=== PATIENT | female | born 1975 | race Caucasian/White ===

== ENCOUNTER 2016-10-18 15:27 | Inpatient (IN) | payer MEDICAID ==
[~2016-10-18] VITALS: Ht 160 cm; Wt 91.4 kg
[2016-10-18 16:00] VITALS: Ht 160 cm; Wt 91.4 kg
[2016-10-18 16:01] VITALS: BP 151/101; PULSE 94
[2016-10-18] MEDS ORDERED: ASPI81TA3 PO (16:05)
[2016-10-18] MEDS ORDERED: PREN-19 PO (16:05)
[2016-10-18 16:38] LABS: ADD SCAN DIFF NO
[2016-10-18 16:41] LABS: BASOPHIL # 0.1 10^3/ul (0.0-0.1); BASOPHILS % 0.4 % (0.0-2.0); EOSINOPHILS # 0.1 10^3/ul (0.0-0.5); EOSINOPHILS % 1.1 % (0.0-7.0); HEMATOCRIT 36.4 % (37.0-47.0); HEMOGLOBIN 12.5 g/dl (12.0-16.0); LYMPHOCYTES # 2.4 10^3/ul (0.8-2.9); LYMPHOCYTES % 21.6 % (15.0-51.0); MEAN CORPUSCULAR HEMOGLOBIN 31.9 pg (29.0-33.0); MEAN CORPUSCULAR HGB CONC 34.3 g/dl (32.0-37.0); MEAN CORPUSCULAR VOLUME 92.9 fl (82.0-101.0); MEAN PLATELET VOLUME 12.2 fl (7.4-10.4); MONOCYTE # 0.8 10^3/ul (0.3-0.9); MONOCYTES % 6.6 % (0.0-11.0); NEUTROPHIL # 7.9 10^3/ul (1.6-7.5); NEUTROPHILS % 69.8 % (39.0-77.0); PLATELET COUNT 159 10^3/UL (140-415); RED BLOOD COUNT 3.92 10^6/ul (4.20-5.40); RED CELL DISTRIBUTION WIDTH 13.4 % (11.5-14.5); WHITE BLOOD COUNT 11.3 10^3/ul (4.8-10.8)
--- NOTE | 2016-10-18 17:02 | RADRPT ---
PROCEDURE: US OB. CLINICAL INDICATION: Low PORSHA TECHNIQUE: Transabdominal views of the pelvis are available for review. COMPARISON: None. FINDINGS: There is a single intrauterine gestation in a breech position. The heart rate is present at 154 bpm. The placenta is anterior. There is no evidence of placenta previa or a placental abruption. The maximum vertical pocket of amniotic fluid is 7.6 cm. RPTAT: AA IMPRESSION: Normal amniotic fluid volume with a maximum vertical pocket of 7.6 cm. Physician Shira Date Time Electronically viewed and signed by Physician Shira on 10/18/2016 17:02 /
[2016-10-18 17:08] LABS: ALBUMIN 3.9 g/dl (3.3-4.9); ALBUMIN/GLOBULIN RATIO 1.39; BILIRUBIN,INDIRECT 0.2 mg/dl (0-1.1); BILIRUBIN,TOTAL 0.2 mg/dl (0.2-1.3); CALCIUM 8.8 mg/dl (8.4-10.2); CREATININE 0.56 mg/dl (0.44-1.00); POTASSIUM 3.9 mmol/L (3.5-5.1); TOTAL PROTEIN 6.7 g/dl (6.1-8.1); URIC ACID 3.1 mg/dl (3.1-7.9)
[2016-10-18 17:34] LABS: ADD UMIC YES; URINE BILIRUBIN (Dip) NEGATIVE (NEGATIVE); URINE BLOOD (Dip) TRACE (NEGATIVE); URINE COLOR LT. YELLOW (YELLOW); URINE GLUCOSE (Dip) NEGATIVE (NEGATIVE); URINE KETONES (Dip) NEGATIVE (NEGATIVE); URINE LEUKOCYTE ESTERASE (Dip) 2+ (NEGATIVE); URINE NITRITE (Dip) NEGATIVE (NEGATIVE); URINE TOTAL PROTEIN (Dip) TRACE (NEGATIVE); URINE UROBILINOGEN (Dip) 0.2 E.U./dL (0.1-1.0)
[2016-10-18 17:40] LABS: BACTERIA,URINE MANY
--- NOTE | 2016-10-18 20:33 | HP ---
DATE OF ADMISSION: 10/18/2016 HISTORY OF PRESENT ILLNESS: A 41-year-old female 2, para 1, estimated date of delivery 01/31/2017, 25 weeks' gestation, is admitted to increasing blood pressure. Patient with a history of chronic hypertension; however, the patient has not been on any medication recently. PAST MEDICAL HISTORY: Chronic hypertension. ALLERGIES: PENICILLIN. FAMILY HISTORY: Noncontributory. PHYSICAL EXAMINATION: VITAL SIGNS: The patient is afebrile. Blood pressure systolic 140s to 150s, diastolics 90s and 100s. HEAD, NECK, AND CHEST: Within normal limits. ABDOMEN: Soft, nontender, and gravid. EXTREMITIES: Within normal liomits. NEUROLOGIC: Within normal limits. IMPRESSION: at 25 weeks with chronic hypertension, rule out superimposed preeclampsia. PLAN: Admit. -induced hypertension panel, 24-hour urine collection. Perinatology consultation. Dictated By: EDMOND MARTE/MING Conf#: [id number] DID#: [id number] MTDChristopher
[2016-10-18] MEDS: LABETALOL 100 MG TAB PO SCH (20:46)
[2016-10-19] MEDS: LABETALOL 100 MG TAB PO SCH ×2 (09:01→21:39)
--- NOTE | 2016-10-19 15:22 | PERINOTE ---
Date/Time of Note Date/Time of Note DATE: 10/19/16 TIME: 15:12 Assessment/Recommendations Other Assessments IUP 25 weeks 1 day Chronic hypertension, possibly with superimposed preeclampsia, certainly with severe-range BPs since admission although no other laboratory abnormalities seen. Recommendations: Would continue bedrest (with SCDs) in the hospital at this time. If BPs are controlled with medication and there is no concern for superimposed preeclampsia (for example, normal urine protein and stable BPs), then could consider discharge home. Otherwise would keep this patient hospitalized with presumptive superimposed preeclampsia with severe features (BP). Plan then would be for delivery by 34 weeks GA, earlier if the fetus or mother become unstable. In either case, I would follow this patient with ultrasound for growth every 3 weeks, daily NST and weekly PORSHA. Would add UA Doppler determination weekly if there is a concern for inadequate growth. Would also perform evaluation for gestational diabetes, preferably at least a week after any steroid administration. OB Subjective Free Text/Dictaton Patient admitted with hypertension Patient with a past history of hypertension for 6 years. Previously was taking hydrochlorthiazide and benazapril, but on no meds during . BP at 15 weeks was 140/96. BP on 10/18 in the office was 151/101, patient was sent to hospital. blood work was unremarkable, 24 hour urine for protein is pending. Patient reports prior care with [facility] , last US about 2 weeks ago. She is taking aspirin 81mg daily for prophylaxis for preeclampsia HD# 2 IUP @ 25W1D Complaints/Overnight events None Current Medications Current Medications Labetalol HCl (Normodyne) 200 mg BID PO Last administered on 10/19/16t 09:01; Admin Dose 200 MG; Start 10/18/16 at 21:00 Past Medical History Medical History: hypertension Surgical History: no surgical history Para: 1 () : 2 LMP (Females 10-50): Family History Significant Family History: hypertension OB Admission Exam Physical Exam Vitals: Vital Signs Date Time Temp Pulse Resp B/P Pulse Ox O2 Delivery O2 Flow Rate FiO2 10/18/16 16:01 98.8 94 151/101 Room Air Max BP since admission: 173/122 BP at time of consultation 136/101 Heart: Rhythm Normal Lungs: Clear Abdomen: WNL Extremities: Normal Reflexes: Normal Last 72 hours Lab Results CBC & BMP 10/18/16 16:28 Liver Function Test 10/18/16 16:28 Alanine Aminotransferase (ALT/SGPT) 29 Albumin 3.9 Alkaline Phosphatase 54 Aspartate Amino Transf (AST/SGOT) 20 Direct Bilirubin 0.00 Total Protein 6.7 Copies To: CC: EDMOND LUA MD, MARIE H MD Oct 19, 2016 15:22
[2016-10-19] MEDS: ASPIRIN (EC) 81 MG TAB PO SCH (16:32)
--- NOTE | 2016-10-19 18:24 | QN ---
Documentation Comment No complaint Afebrile BP still elevated. Plt, AST and ALT normal. Patient is on labetalol to control her BP. Await 24 hour urine collection. EDMOND LUA MD Oct 19, 2016 18:24
[2016-10-19 19:41] LABS: SCRET 0.56 mg/dl (0.44-1.00)
[2016-10-20] MEDS: LABETALOL 100 MG TAB PO SCH ×2 (05:59→13:53)
[2016-10-20] MEDS: ASPIRIN (EC) 81 MG TAB PO SCH (08:52)
--- NOTE | 2016-10-20 20:28 | DS ---
DATE OF ADMISSION: 10/18/2016 DATE OF DISCHARGE: 10/20/2016 ADMITTING DIAGNOSIS: at 25 weeks with chronic hypertension, rule out superimposed preecla mpsia. HISTORY: A 41-year-old female, 2, para 1, at 25 weeks' gestation was admitted due to increa sing blood pressure. The patient with history of chronic hypertension and was noted to have increas ing blood pressure. The patient was admitted on 10/18/2016. The patient had workup for preeclampsi a with -induced hypertension panel, 24-hour urine collection. Perinatology consultation wa s obtained. Recommendation of perinatologist was to keep the patient on antihypertensive medication to control her blood pressure with labetalol and if the workup with labs and 24-hour urine collecti on were normal to have the patient discharged. The patient was started on labetalol. The patient's blood pressure improved. The patient has not had any symptoms during hospitalization. Results of -induced hypertension panel and 24-hour urine collection were normal. The patient is disch arged on 10/20/2016. CONDITION ON DISCHARGE: Stable. DISCHARGE INSTRUCTIONS: DIET: Low-salt diet. ACTIVITY: As tolerated. MEDICATION: Continue with: 1. vitamins. 2. Low-dose aspirin. 3. Labetalol 200 mg p.o. 3 times daily. FOLLOWUP: In the clinic in 5 days. FINAL DIAGNOSES: 1. , not delivered. 2. Chronic hypertension. Dictated By: EDMOND MARTE/NTS Conf#: [id number] DID#: [id number]
== END 2016-10-20 18:53 | disposition home or self-care (01) | DRG 781 ==
LOC: OBT 15:27 → OBG 15:29 → OBT 17:50 → OBG 17:50
PROVIDERS: ADMIT Obstetrics & Gynecology; ATTEND Obstetrics & Gynecology
DX: O16.2 Unspecified maternal hypertension, second trimester (principal); O09.522 Supervision of elderly multigravida, second trimester; Z3A.25 25 weeks gestation of pregnancy
CPT/HCPCS: 36415; 76815; 80053; 81001; 82575; 84156; 84560; 85025; G0463

== ENCOUNTER 2016-11-13 17:50 | Inpatient (IN) | payer MEDICAID ==
[~2016-11-13] VITALS: Ht 160 cm; Wt 97.0 kg
[~2016-11-13 17:50] MED LIST: ASPI81TA3 PO; PREN-19 PO
[2016-11-13 19:18] VITALS: BP 144/101; PULSE 92; RESP 18; Ht 160 cm; Wt 97.0 kg
[2016-11-13 19:48] LABS: ADD UMIC YES; UR ASCORBIC ACID 40 mg/dL (NEGATIVE); UR BACTERIA FEW /HPF (NONE SEEN); UR BILIRUBIN (Dip) NEGATIVE (NEGATIVE); UR BLOOD (Dip) NEGATIVE (NEGATIVE); UR CLARITY SLIGHTLY CLOUDY (CLEAR); UR COLOR YELLOW (YELLOW); UR GLUCOSE (Dip) NEGATIVE (NEGATIVE); UR KETONES (Dip) TRACE mg/dL (NEGATIVE); UR LEUKOCYTE ESTERASE (Dip) 2+ Leu/ul (NEGATIVE); UR MUCUS MODERATE /HPF (NONE SEEN); UR NITRITE (Dip) NEGATIVE (NEGATIVE); UR RBC 4 /HPF (0-5); UR SPECIFIC GRAVITY (Dip) 1.031 (1.003-1.030); UR SQUAMOUS EPITHELIAL CELL FEW /HPF (FEW); UR TOTAL PROTEIN (Dip) 1+ mg/dl (NEGATIVE); UR UROBILINOGEN (Dip) NEGATIVE (NEGATIVE)
[2016-11-13 19:48] LABS: ADD SCAN DIFF NO
[2016-11-13 19:54] LABS: BASOPHIL # 0.1 10^3/ul (0.0-0.1); BASOPHILS % 0.6 % (0.0-2.0); EOSINOPHILS # 0.1 10^3/ul (0.0-0.5); EOSINOPHILS % 1.5 % (0.0-7.0); HEMATOCRIT 34.9 % (37.0-47.0); LYMPHOCYTES # 2.4 10^3/ul (0.8-2.9); LYMPHOCYTES % 24.9 % (15.0-51.0); MEAN CORPUSCULAR HGB CONC 34.4 g/dl (32.0-37.0); MEAN CORPUSCULAR VOLUME 93.1 fl (82.0-101.0); MEAN PLATELET VOLUME 12.5 fl (7.4-10.4); MONOCYTE # 0.6 10^3/ul (0.3-0.9); MONOCYTES % 6.1 % (0.0-11.0); NEUTROPHIL # 6.4 10^3/ul (1.6-7.5); NEUTROPHILS % 66.5 % (39.0-77.0); PLATELET COUNT 123 10^3/UL (140-415); RED BLOOD COUNT 3.75 10^6/ul (4.20-5.40); RED CELL DISTRIBUTION WIDTH 13.7 % (11.5-14.5); WHITE BLOOD COUNT 9.6 10^3/ul (4.8-10.8)
[2016-11-13] MEDS ORDERED: BETAMET NA PHOS/AC(6 MG/ML) 5ML INJ IM ONE (20:00)
[2016-11-13] MEDS: LABETALOL HCL 20MG INJ IV PRN ×3 (20:02→22:35)
[2016-11-13] MEDS: LACTATED RINGER'S 1,000 ML IV SCH ×2 (20:02→23:58)
[2016-11-13 20:08] LABS: INR 0.97; PARTIAL THROMBOPLASTIN TIME 25.2 Sec (25.0-35.0); PROTIME 12.9 Sec (12.2-14.2)
[2016-11-13] MEDS ORDERED: LABE200T25 PO (20:08)
[2016-11-13 20:10] LABS: ALBUMIN 3.8 g/dl (3.3-4.9); ALBUMIN/GLOBULIN RATIO 1.58; BILIRUBIN,INDIRECT 0.2 mg/dl (0-1.1); BILIRUBIN,TOTAL 0.2 mg/dl (0.2-1.3); CALCIUM 9.1 mg/dl (8.4-10.2); CREATININE 0.71 mg/dl (0.44-1.00); POTASSIUM 3.9 mmol/L (3.5-5.1); TOTAL PROTEIN 6.2 g/dl (6.1-8.1); URIC ACID 4.6 mg/dl (3.1-7.9)
--- NOTE | 2016-11-13 20:37 | TRIAGE ---
OB Triage Datetime Report Generated by CPN: 11/13/2016 20:36 Datetime: 11/13/2016 20:11 Vaginal Exam Membrane Status: Intact Datetime: 11/13/2016 18:52 Comments: ULTRASOUND AT THE BEDSDIE Datetime: 11/13/2016 18:30 Stage of : OB Triage Assessment Type: Triage Maternal Assessment Level of Consciousness: Fully Conscious DTR's/Clonus: DTRs 2+; No Clonus Headache: Denies Blurred Vision: No Respiratory Effort: Unlabored; Regular Rhythm; Equal Expansion Breath Sounds, Left: Clear and Equal Breath Sounds, Right: Clear and Equal Nausea/Vomiting: Denies RUQ Epigastric Pain: Denies Lower Extremities Edema: Bilateral Lower Extremities Degree: 2+ Upper Extremities Edema: None Degree: None Facial Edema: 1+ Temperature Route: Axillary Fall Risk Assessment History of Falling: (0) No Secondary Diagnosis: (0) No Ambulatory Aid: (0) Bedrest/Nurse Assist IV Therapy: (0) No Gait: (0) Normal/Bedrest/Immobile Mental Status: (0) Oriented to Own Ability Fall Score: 0 Fall Risk Score Definition: No Risk: No action required Datetime: 11/13/2016 18:22 Labor Evaluation Frequency: 0 Monitor Mode: External Duration (sec)2399: 0 Resting Tone [place]: Relaxed Contraction Comments: PT DENIES UC'S AT THIS TIME Heart Rate FHR Baseline Rate: 145 Monitor Mode: External US Variability: Moderate 6-25 bpm Accelerations: 15X15 Decelerations: None Category: Category I Comments: NST REACTIVE FOR GESTATIONAL AGE Datetime: 10/20/2016 18:43 Time of Arrival: 11/13/2016 17:50 EGA: 28.5 Arrived By: Ambulatory Arrived From: Dr. Forman Movement: Present Contractions: Denies/Absent Rupture of Membranes: Denies Vaginal Bleeding: None Vaginal Discharge: Denies Recent Sexual Intercouse: Denies Additional Patient Complaints: PT IS ASYMPTOMATIC, PT DENIES UC,S HEADACHE, ABDOMINAL PAIN , AND B LURRED VISION Time Provider Notified: 11/13/2016 18:35 Provider Notified: DR. LUA Initial Plan: UA, CBC, CMP , BPP, Datetime: 10/20/2016 09:51 Labor Evaluation Frequency: 0 Monitor Mode: External Duration (sec)2399: 0 Pattern: Normal: <= 5 Contractions in 10 Minutes Resting Tone [place]: Relaxed Contraction Comments: ABDOMEN SOFT TO PALPATION. DENIES FEELING ANY UC'S Heart Rate FHR Baseline Rate: 140 Monitor Mode: External US FHR Baseline Changes: No Baseline Change Variability: Moderate 6-25 bpm Accelerations: 10X10 Decelerations: Variable Category: Category I Datetime: 10/20/2016 07:45 Assessment Type: Ongoing Assessment Maternal Assessment Level of Consciousness: Fully Conscious DTR's/Clonus: DTRs 2+; No Clonus Headache: Denies Blurred Vision: No Respiratory Effort: Unlabored; Regular Rhythm; Equal Expansion Nausea/Vomiting: Denies RUQ Epigastric Pain: Denies Lower Extremities Edema: None Upper Extremities Edema: None Facial Edema: None Fall Risk Assessment History of Falling: (0) No Secondary Diagnosis: (0) No Ambulatory Aid: (0) Bedrest/Nurse Assist IV Therapy: (0) No Gait: (0) Normal/Bedrest/Immobile Mental Status: (0) Oriented to Own Ability Fall Score: 0 Fall Risk Score Definition: No Risk: No action required Datetime: 10/20/2016 07:35 Pain Assessment Pain Scale: 0 Pain Presence: None/Denies Pain Type: N/A Datetime: 10/20/2016 06:00 Maternal Assessment Level of Consciousness: Fully Conscious Datetime: 10/20/2016 04:42 Pain Assessment Pain Scale: 0 Datetime: 10/19/2016 20:00 Labor Evaluation Frequency: 0 Monitor Mode: External Heart Rate FHR Baseline Rate: 150 Monitor Mode: External US FHR Baseline Changes: No Baseline Change Variability: Minimal - Undetectable to <=5 bpm Accelerations: 10X10 Decelerations: None Category: Category I Comments: AGA 25 WKS Datetime: 10/19/2016 19:42 Assessment Type: Ongoing Assessment Maternal Assessment Level of Consciousness: Fully Conscious DTR's/Clonus: DTRs 2+; No Clonus Headache: Denies Blurred Vision: No Respiratory Effort: Unlabored; Regular Rhythm; Equal Expansion Nausea/Vomiting: Denies RUQ Epigastric Pain: Denies Lower Extremities Edema: None Upper Extremities Edema: None Facial Edema: None Temperature Route: Oral Fall Risk Assessment History of Falling: (0) No Secondary Diagnosis: (0) No Ambulatory Aid: (0) Bedrest/Nurse Assist IV Therapy: (0) No Gait: (0) Normal/Bedrest/Immobile Mental Status: (0) Oriented to Own Ability Fall Score: 0 Fall Risk Score Definition: No Risk: No action required Pain Assessment Pain Scale: 0 Datetime: 10/19/2016 17:02 Stage of : Antepartum Maternal Assessment Level of Consciousness: Fully Conscious Headache: Denies Nausea/Vomiting: Denies RUQ Epigastric Pain: Denies Labor Evaluation Frequency: 0hr Monitor Mode: External Heart Rate FHR Baseline Rate: 145 Monitor Mode: External US Comments: + fht's 140-150's ega is 25.1 approp. for ega Pain Assessment Pain Scale: 0 Pain Presence: None/Denies Vaginal Bleeding: None Datetime: 10/19/2016 16:00 Stage of : Antepartum Maternal Assessment Level of Consciousness: Fully Conscious Headache: Denies Nausea/Vomiting: Denies RUQ Epigastric Pain: Denies Labor Evaluation Frequency: 0hr Monitor Mode: External Pain Assessment Pain Scale: 0 Pain Presence: None/Denies Vaginal Bleeding: None Datetime: 10/19/2016 15:54 Maternal Assessment Level of Consciousness: Fully Conscious Headache: Denies Blurred Vision: No Respiratory Effort: Unlabored Nausea/Vomiting: Denies RUQ Epigastric Pain: Denies Pain Presence: None/Denies Datetime: 10/19/2016 15:00 Stage of : Antepartum Maternal Assessment Level of Consciousness: Fully Conscious Headache: Denies Nausea/Vomiting: Denies RUQ Epigastric Pain: Denies Labor Evaluation Frequency: 0hr Monitor Mode: External Pain Assessment Pain Scale: 0 Pain Presence: None/Denies Vaginal Bleeding: None Datetime: 10/19/2016 13:00 Stage of : Antepartum Maternal Assessment Level of Consciousness: Fully Conscious Headache: Denies Nausea/Vomiting: Denies RUQ Epigastric Pain: Denies Labor Evaluation Frequency: 0hr Monitor Mode: External Pain Assessment Pain Scale: 0 Pain Presence: None/Denies Vaginal Bleeding: None Datetime: 10/19/2016 12:00 Stage of : Antepartum Maternal Assessment Level of Consciousness: Fully Conscious Headache: Denies Nausea/Vomiting: Denies RUQ Epigastric Pain: Denies Labor Evaluation Frequency: 0hr Monitor Mode: External Pain Assessment Pain Scale: 0 Pain Presence: None/Denies Vaginal Bleeding: None Datetime: 10/19/2016 11:43 Maternal Assessment Level of Consciousness: Fully Conscious Headache: Denies Blurred Vision: No Nausea/Vomiting: Denies Pain Presence: None/Denies Datetime: 10/19/2016 11:00 Stage of : Antepartum Maternal Assessment Level of Consciousness: Fully Conscious Headache: Denies Nausea/Vomiting: Denies RUQ Epigastric Pain: Denies Labor Evaluation Frequency: 0/hr Monitor Mode: External Pain Assessment Pain Scale: 0 Pain Presence: None/Denies Vaginal Bleeding: None Datetime: 10/19/2016 10:00 Stage of : Antepartum Maternal Assessment Level of Consciousness: Fully Conscious Headache: Denies Nausea/Vomiting: Denies RUQ Epigastric Pain: Denies Resting Tone [place]: Relaxed Pain Assessment Pain Scale: 0 Pain Presence: None/Denies Vaginal Bleeding: None Datetime: 10/19/2016 09:00 Stage of : Antepartum Maternal Assessment Level of Consciousness: Fully Conscious Headache: Denies Nausea/Vomiting: Denies RUQ Epigastric Pain: Denies Resting Tone [place]: Relaxed Pain Assessment Pain Scale: 0 Pain Presence: None/Denies Vaginal Bleeding: None Datetime: 10/19/2016 08:53 Pain Presence: None/Denies Datetime: 10/19/2016 08:00 Stage of : Antepartum Maternal Assessment Level of Consciousness: Fully Conscious Headache: Denies Nausea/Vomiting: Denies RUQ Epigastric Pain: Denies Resting Tone [place]: Relaxed Contraction Comments: pt. denies Comments: ega 25.1 pt. acknowledges movement Pain Assessment Pain Scale: 0 Pain Presence: None/Denies Vaginal Bleeding: None Datetime: 10/19/2016 07:46 Assessment Type: Ongoing Assessment Maternal Assessment Level of Consciousness: Fully Conscious DTR's/Clonus: DTRs 2+; No Clonus Headache: Denies Blurred Vision: No Respiratory Effort: Unlabored; Regular Rhythm; Equal Expansion Nausea/Vomiting: Denies RUQ Epigastric Pain: Denies Lower Extremities Edema: None Upper Extremities Edema: None Facial Edema: None Fall Risk Assessment History of Falling: (0) No Secondary Diagnosis: (0) No Ambulatory Aid: (0) Bedrest/Nurse Assist IV Therapy: (0) No Gait: (0) Normal/Bedrest/Immobile Mental Status: (0) Oriented to Own Ability Fall Score: 0 Fall Risk Score Definition: No Risk: No action required Datetime: 10/19/2016 07:44 Maternal Assessment Level of Consciousness: Fully Conscious DTR's/Clonus: DTRs 2+ Headache: Denies Blurred Vision: No Respiratory Effort: Unlabored Breath Sounds, Left: Clear and Equal Breath Sounds, Right: Clear and Equal Nausea/Vomiting: Denies RUQ Epigastric Pain: Denies Datetime: 10/19/2016 07:40 Pain Presence: None/Denies Datetime: 10/18/2016 23:55 Temperature Route: Oral Pain Assessment Pain Scale: 0 Datetime: 10/18/2016 22:00 Labor Evaluation Frequency: 0 Monitor Mode: External Heart Rate FHR Baseline Rate: 145 Monitor Mode: External US FHR Baseline Changes: No Baseline Change Variability: Moderate 6-25 bpm (Annotations: TO MINIMAL. AGA 25 WKS) Accelerations: 10X10 Decelerations: None Category: Category I Datetime: 10/18/2016 19:30 Assessment Type: Ongoing Assessment Maternal Assessment Level of Consciousness: Fully Conscious DTR's/Clonus: DTRs 2+; No Clonus Headache: Denies Blurred Vision: No Respiratory Effort: Unlabored; Regular Rhythm; Equal Expansion Nausea/Vomiting: Denies RUQ Epigastric Pain: Denies Facial Edema: None Temperature Route: Oral Fall Risk Assessment History of Falling: (0) No Secondary Diagnosis: (0) No Ambulatory Aid: (0) Bedrest/Nurse Assist IV Therapy: (0) No Gait: (0) Normal/Bedrest/Immobile Mental Status: (0) Oriented to Own Ability Fall Score: 0 Fall Risk Score Definition: No Risk: No action required Pain Assessment Pain Scale: 0 Datetime: 10/18/2016 19:10 Stage of : Antepartum Datetime: 10/18/2016 16:57 Labor Evaluation Frequency: 0 Monitor Mode: External Duration (sec)2399: 0 Pattern: Normal: <= 5 Contractions in 10 Minutes Contraction Comments: ABDOMEN SOFT TO PALPATION Heart Rate FHR Baseline Rate: 150 Monitor Mode: External US FHR Baseline Changes: No Baseline Change Variability: Minimal - Undetectable to <=5 bpm Accelerations: 10X10 Decelerations: None Category: Category II Datetime: 10/18/2016 15:57 Time of Arrival: 10/18/2016 17:50 EGA: 25.0 Arrived By: Ambulatory Arrived From: Dr. Office Datetime: 10/18/2016 15:56 Assessment Type: Triage Maternal Assessment Level of Consciousness: Fully Conscious DTR's/Clonus: DTRs 2+; No Clonus Headache: Denies Blurred Vision: No Respiratory Effort: Unlabored; Regular Rhythm; Equal Expansion Breath Sounds, Left: Clear and Equal Breath Sounds, Right: Clear and Equal Nausea/Vomiting: Denies RUQ Epigastric Pain: Denies Lower Extremities Edema: Bilateral Lower Extremities Degree: 1+ Upper Extremities Edema: None Degree: None Facial Edema: None Fall Risk Assessment History of Falling: (0) No Secondary Diagnosis: (0) No Ambulatory Aid: (0) Bedrest/Nurse Assist IV Therapy: (0) No Gait: (0) Normal/Bedrest/Immobile Mental Status: (0) Oriented to Own Ability Fall Score: 0 Fall Risk Score Definition: No Risk: No action required Datetime: 10/18/2016 15:54 Time of Arrival: 10/18/2016 15:45 Arrived By: Ambulatory Chief Complaint: SENT FROM [facility] FOR ELVEATED B/P'S Movement: Present Contractions: Denies/Absent Rupture of Membranes: Denies Vaginal Bleeding: None Vaginal Discharge: Denies Recent Sexual Intercouse: Denies Abdominal Trauma: Not Applicable Patient Complaints: None Initial Plan: UA, LABS, PIH PANEL, NST
--- NOTE | 2016-11-13 20:42 | RADRPT ---
PROCEDURE: US OB. CLINICAL INDICATION: Chronic hypertension TECHNIQUE: Pelvic ultrasound performed for biophysical profile. COMPARISON: 10/18/2016 FINDINGS: Single intrauterine gestation present with heart rate at 21 146 beats per minute. Presentation is c ephalic. Placenta is posterior fundal and grade 1. Biophysical profile score is 8/8 (breathing=2, movement=2, tone =2, fluid volume=2). Amniotic fluid volume is within normal limits, with PORSHA = 13. 9 cm. RPTAT:HJJR IMPRESSION: Biophysical profile score 8/8. Physician Jed Date Time Electronically viewed and signed by Physician Jed on 11/13/2016 20:42 JR/
[2016-11-13] MEDS ORDERED: LABETALOL 100 MG TAB PO SCH (21:00)
[2016-11-13] MEDS ORDERED: MAGNESIUM SULFATE 4 GM/100 ML 100 ML ONE (23:15)
[2016-11-13] MEDS ORDERED: MAGNESIUM SULFATE 4 GM/100 ML 100 ML IV SCH (23:30)
[2016-11-13] MEDS ORDERED: CA GLUCONATE (GM) 10% 10ML INJ IV PRN (23:30)
[2016-11-14] MEDS: MAGNESIUM SULFATE 20 GM/500 ML 500 ML IV SCH ×3 (00:03→20:00)
[2016-11-14] MEDS: LABETALOL 100 MG TAB PO SCH ×3 (05:05→21:05)
[2016-11-14 06:14] LABS: ADD SCAN DIFF NO
[2016-11-14 06:21] LABS: ABNORMAL IP MESSAGE 1; BASOPHILS % 0.2 % (0.0-2.0); HEMATOCRIT 39.7 % (37.0-47.0); HEMOGLOBIN 13.1 g/dl (12.0-16.0); LYMPHOCYTES # 1.5 10^3/ul (0.8-2.9); LYMPHOCYTES % 13.6 % (15.0-51.0); MEAN CORPUSCULAR HEMOGLOBIN 31.3 pg (29.0-33.0); MEAN CORPUSCULAR VOLUME 94.7 fl (82.0-101.0); MEAN PLATELET VOLUME 13.2 fl (7.4-10.4); MONOCYTE # 0.1 10^3/ul (0.3-0.9); MONOCYTES % 0.8 % (0.0-11.0); NEUTROPHIL # 9.3 10^3/ul (1.6-7.5); NEUTROPHILS % 84.7 % (39.0-77.0); PLATELET COUNT 139 10^3/UL (140-415); RED BLOOD COUNT 4.19 10^6/ul (4.20-5.40); RED CELL DISTRIBUTION WIDTH 13.6 % (11.5-14.5)
[2016-11-14 06:51] LABS: ALBUMIN 4.1 g/dl (3.3-4.9); ALBUMIN/GLOBULIN RATIO 1.46; BILIRUBIN,INDIRECT 0.4 mg/dl (0-1.1); BILIRUBIN,TOTAL 0.4 mg/dl (0.2-1.3); CALCIUM 8.8 mg/dl (8.4-10.2); CREATININE 0.59 mg/dl (0.44-1.00); POTASSIUM 5.1 mmol/L (3.5-5.1); TOTAL PROTEIN 6.9 g/dl (6.1-8.1); URIC ACID 4.2 mg/dl (3.1-7.9)
[2016-11-14] MEDS: PRENATAL VITAMIN PO SCH (08:53)
[2016-11-14] MEDS: ASPIRIN (EC) 81 MG TAB PO SCH (08:53)
[2016-11-14] MEDS: LACTATED RINGER'S 1,000 ML IV SCH (13:25)
--- NOTE | 2016-11-14 16:30 | CONS ---
Date/Time of Note Date/Time of Note DATE: 11/14/16 TIME: 16:27 Assessment/Plan Assessment/Plan Additional Assessment/Plan I spoke at length with mom regarding complications associated with delivery at 28+ weeks. Discussed length of stay in NICU. Discussed mortality data. Discussed complications at this gestational age including but not limited to chronic lung disease requiring ventilator use as well as home oxygen therapy, higher risk of infections, necrotizing enterocolitis, intraventricular hemorrhage, retinopathy prematurity. Discussed benefits of breastmilk for prevention of some of these complications. Discussed high risk of neurodevelopmental morbidities including cerebral palsy, attention deficit disorder, autism, learning disabilities and infants born at this gestational age. Mom verbalized understanding of our discussion all questions have been asked at this point Thank you for allowing me to participate in the care of this . Should any further questions arise please do not hesitate to contact us Consultation Date/Type/Reason Admit Date/Time Nov 13, 2016 at 18:35 Date of Consultation: Nov 14, 2016 Type of Consultation: Reason for Consultation Assessment performed her consultation for Majo AndujarNapier who is a 41- year-old female admitted to [facility] at estimated gestational age of 28 and 5/7 weeks with -induced hypertension. Social History Smoking Status: Never smoker Exam/Review of Systems Vital Signs Vitals Vital Signs Date Time Temp Pulse Resp B/P Pulse Ox O2 Delivery O2 Flow Rate FiO2 11/13/16 19:18 97.8 92 18 144/101 98 Room Air Intake and Output 11/13/16 11/13/16 11/14/16 15:00 23:00 07:00 Intake Total 1875 ml Output Total 200 ml 1550 ml Balance -200 ml 325 ml Results Result Diagram: 11/14/16 0551 11/14/16 0551 Results 24 hrs Laboratory Tests Test 11/13/16 18:00 11/13/16 19:38 11/14/16 05:51 11/14/16 11:31 Urine Color YELLOW Urine Clarity SLIGHTLY CLOUDY A Urine pH 5.0 Urine Specific [place] 1.031 H Urine Ketones TRACE A Urine Nitrite NEGATIVE Urine Bilirubin NEGATIVE Urine Urobilinogen NEGATIVE Urine Leukocyte Esterase 2+ H Urine Microscopic RBC 4 Urine Microscopic WBC 17 H Urine Squamous Epithelial Cells FEW Urine Bacteria FEW A Urine Mucus MODERATE Urine Hemoglobin NEGATIVE Urine Glucose NEGATIVE Urine Total Protein 1+ H White Blood Count 9.6 11.0 H Red Blood Count 3.75 L 4.19 L Hemoglobin 12.0 13.1 Hematocrit 34.9 L 39.7 Mean Corpuscular Volume 93.1 94.7 Mean Corpuscular Hemoglobin 32.0 31.3 Mean Corpuscular Hemoglobin Concent 34.4 33.0 Red Cell Distribution Width 13.7 13.6 Platelet Count 123 #L 139 L Mean Platelet Volume 12.5 H 13.2 H Neutrophils % 66.5 84.7 H Lymphocytes % 24.9 13.6 L Monocytes % 6.1 0.8 Eosinophils % 1.5 0.0 Basophils % 0.6 0.2 Nucleated Red Blood Cells % 0.0 0.0 Neutrophils # 6.4 9.3 H Lymphocytes # 2.4 1.5 Monocytes # 0.6 0.1 L Eosinophils # 0.1 0.0 Basophils # 0.1 0.0 Nucleated Red Blood Cells # 0.0 0.0 Prothrombin Time 12.9 Prothrombin Time Ratio 1.0 INR International Normalized Ratio 0.97 Activated Partial Thromboplast Time 25.2 Fibrinogen 362.0 Sodium Level 135 138 Potassium Level 3.9 5.1 Chloride Level 106 102 Carbon Dioxide Level 23 23 Anion Gap 10 18 #H Blood Urea Nitrogen 11 10 Creatinine 0.71 0.59 Glucose Level 99 141 # Uric Acid 4.6 4.2 Calcium Level 9.1 8.8 Total Bilirubin 0.2 0.4 Direct Bilirubin 0.00 0.00 Indirect Bilirubin 0.2 0.4 Aspartate Amino Transf (AST/SGOT) 28 33 Alanine Aminotransferase (ALT/SGPT) 33 33 Alkaline Phosphatase 57 71 Total Protein 6.2 6.9 Albumin 3.8 4.1 Globulin 2.40 2.80 Albumin/Globulin Ratio 1.58 1.46 Magnesium Level 4.2 H 4.5 H Medications Medications Current Medications Lactated Ringer's (Lr) 1,000 ml @ 75 mls/hr [id number] IV Last administered on 13:25; Admin Dose 75 MLS/HR; Start 11/13/16 at 19:36 Prenat Multivit/ Demand Planning Analyst/Iron/Folic Ac ( S) 1 tab DAILY PO Last administered on 11/14/16 08:53; Admin Dose 1 TAB; Start 11/14/16 at 09:00 Labetalol HCl (Labetalol) 20 mg Q10M PRN IV ELEVATED BLOOD PRESSURE Last administered on 11/13/16 22:35; Admin Dose 20 MG; Start 11/13/16 at 20:00 Aspirin 81 mg 81 mg DAILY PO Last administered on 11/14/16 08:53; Admin Dose 81 MG; Start 11/14/16 at 09:00 Magnesium Sulfate (Magnesium Sulfate 20 Gm/500 ml) 500 ml @ 50 mls/hr Q10H IV Last administered on 11/14/16 10:42; Admin Dose 50 MLS/HR; Start 11/14/16 at 00: 00 Calcium Gluconate (Ca Gluc) 1 gm ONCE PRN IV FOR MAGNESIUM TOXICITY; Start at 23:30 Labetalol HCl (Normodyne) 300 mg Q8H PO Last administered on 11/14/16 13:52; Admin Dose 300 MG; Start 11/14/16 at 05:00 Betamethasone Acet/Betameth SodPhos (Celestone Soluspan) 12 mg ONCE ONCE IM ; Start 11/14/16 at 21:00; Stop 11/14/16 at 21:01 DERRELL DIA MD Nov 14, 2016 16:30
--- NOTE | 2016-11-14 18:46 | HP ---
Date/Time of Note Date/Time of Note DATE: 11/14/16 TIME: 18:40 OB - History Hx of Present Chief Complaint: elevated BP Estimated Due Date: Jan 31, 2017 : 2 Para: 1 Spontaneous : 0 Therapeutic : 0 Care: Good Care Ultrasounds: Normal mid trimester US Obstetrical Complications: None Medical Complications: Other (chronic hypertension) Past Family/Social History * Past Medical, Surgical, Family and Obstetric Histories reviewed from chart. OB Admission Exam Vital Signs Vital Signs Vital Signs Date Time Temp Pulse Resp B/P Pulse Ox O2 Delivery O2 Flow Rate FiO2 11/13/16 19:18 97.8 92 18 144/101 98 Room Air Physical Exam HEENT: WNL Heart: Rhythm Normal Lungs: Clear Abdomen: WNL Extremities: Normal Reflexes: Normal Last 72 hours Lab Results CBC & BMP 11/13/16 19:38 11/14/16 05:51 Liver Function Test 11/13/16 19:38 11/14/16 05:51 Alanine Aminotransferase (ALT/SGPT) 33 33 Albumin 3.8 4.1 Alkaline Phosphatase 57 71 Aspartate Amino Transf (AST/SGOT) 28 33 Direct Bilirubin 0.00 0.00 Total Protein 6.2 6.9 Magnesium Level Test 11/14/16 05:51 11/14/16 11:31 Magnesium Level 4.2 H 4.5 H OB Assessment/Plan Reason for admission: other (chrnic hypertension r/o superimposed preeclampsia) Plan: Other Other plan: Admit PIH panel 24 hour urine collection Control BP Perinatology consult Neonatology consult EDMOND LUA MD Nov 14, 2016 18:46
[2016-11-14 19:44] LABS: SCRET 0.59 mg/dl (0.44-1.00)
[2016-11-14] MEDS ORDERED: BETAMET NA PHOS/AC(6 MG/ML) 5ML INJ IM ONE (21:00)
[2016-11-15] MEDS: LACTATED RINGER'S 1,000 ML IV SCH ×5 (01:06→23:27)
[2016-11-15] MEDS: LABETALOL 100 MG TAB PO SCH ×3 (05:26→21:09)
[2016-11-15] MEDS: PRENATAL VITAMIN PO SCH (08:18)
[2016-11-15] MEDS: ASPIRIN (EC) 81 MG TAB PO SCH (08:18)
--- NOTE | 2016-11-15 12:22 | RADRPT ---
PROCEDURE: US OB biophysical profile. CLINICAL INDICATION: decreased movements, PTL TECHNIQUE: Multiple sonographic images of the pelvis were obtained. The images were reviewed on a PACS workstation. COMPARISON: 11/13/16 FINDINGS: There is a single viable intrauterine gestation. Cardiac activity is present with 142 beats per min [place]. There is a breech presentation. The placenta is posterior. There is no evidence of placental abruption. There is a normal amount of amniotic fluid with an PORSHA = 13.4 cm. Biophysical profile: movement 2/2 tone 2/2. breathing 2/2 PORSHA 2/2 Total 12/17 RPTAT: AA . IMPRESSION: Normal biophysical profile. . .Janes Dior MD, MD Date Time Electronically viewed and signed by .Janes Dior MD, MD on 11/15/2016 12:21 .S/
--- NOTE | 2016-11-15 12:54 | RADRPT ---
PROCEDURE: US OB. CLINICAL INDICATION: Size and dates , labor TECHNIQUE: Multiple sonographic images of the pelvis and gravid uterus were obtained. The images were reviewed on a PACS workstation. COMPARISON: 11/13/2016 FINDINGS: There is a single viable intrauterine gestation. Cardiac activity is present with 142 beats per edna te. There is a breech presentation. The placenta is posterior. There is no evidence of placental abruption. There is a normal amount of amniotic fluid with an PORSHA = 13.4 cm. Measurements were made in order to determine age. The results are as follows: BPD =6.9 cm HC =26.5 cm AC =24.9 cm FL =5.3 cm Estimated gestational age of approximately 28 weeks and 4 days based on ultrasound measurements. Clinical age: 29 weeks and 0 days. The estimated date of delivery is 02/03/17, based on ultrasound measurements. The EFW = 1272 g, 27%, based on LMP age. RPTAT: AA IMPRESSION: Single viable intrauterine gestation of approximately 28 weeks and 4 days based on ultrasound measu rements. .Janes Dior MD, Date Time Electronically viewed and signed by .Janes Dior MD, MD on 11/15/2016 12:54 .S/
[2016-11-15] MEDS: ACETAMINOPHEN 325 MG TAB PO PRN (18:39)
[2016-11-15] MEDS: LABETALOL HCL 20MG INJ IV PRN ×2 (19:06→20:08)
--- NOTE | 2016-11-15 20:34 | QN ---
Documentation Comment Patient had headache earlier and after she took Tylenol, her headache improved. Afebrile BP increased again Strip appropriate for GA BPP / Will control BP with increase in antihrpertensive medication. EDMOND LUA MD Nov 15, 2016 20:34
[2016-11-16] MEDS: LABETALOL 100 MG TAB PO SCH (05:08)
[2016-11-16] MEDS ORDERED: ONDANSETRON 4 MG INJ ONE (07:00)
[2016-11-16] MEDS: LABETALOL HCL 20MG INJ IV PRN (07:27)
[2016-11-16] MEDS ORDERED: hydrALAzine 20 MG INJ IV ONE ×5 (08:00→14:00)
[2016-11-16] MEDS: ACETAMINOPHEN 325 MG TAB PO PRN (08:21)
[2016-11-16] MEDS: LACTATED RINGER'S 1,000 ML IV SCH (09:27)
[2016-11-16] MEDS ORDERED: MAGNESIUM SULFATE 4 GM in SOD CHLORIDE 0.9% 100 ML IV ONE (09:30)
[2016-11-16] MEDS: PRENATAL VITAMIN PO SCH (10:04)
[2016-11-16] MEDS: ASPIRIN (EC) 81 MG TAB PO SCH (10:04)
[2016-11-16] MEDS: MAGNESIUM SULFATE 20 GM/500 ML 500 ML IV SCH ×2 (10:19→20:26)
[2016-11-16] MEDS ORDERED: OXYTOCIN 30 UNITS/LR 500 ML IV PRN ×2 (11:30→19:00)
[2016-11-16] MEDS ORDERED: CARBOPROST 250 MCG INJ IM PRN ×2 (11:30→19:00)
[2016-11-16] MEDS ORDERED: METHYLERGONOVINE 0.2 MG INJ IM PRN (11:30)
[2016-11-16] MEDS ORDERED: MISOPROSTOL 200 MCG TAB PR PRN ×2 (11:30→19:00)
[2016-11-16] MEDS ORDERED: CEFAZOLIN 2 GM/50 ML (PMX) 50 ML IVPB SCH (11:30)
[2016-11-16] MEDS ORDERED: OXYTOCIN 30 UNITS/LR 500 ML IV SCH (11:30)
[2016-11-16] MEDS ORDERED: CEFAZOLIN 2 GM/50 ML (PMX) 50 ML IVPB ONE (12:00)
[2016-11-16 12:23] LABS: ADD SCAN DIFF NO
[2016-11-16 12:32] LABS: BASOPHILS % 0.2 % (0.0-2.0); EOSINOPHILS % 0.1 % (0.0-7.0); HEMATOCRIT 36.1 % (37.0-47.0); HEMOGLOBIN 12.2 g/dl (12.0-16.0); LYMPHOCYTES # 2.6 10^3/ul (0.8-2.9); LYMPHOCYTES % 18.8 % (15.0-51.0); MEAN CORPUSCULAR HEMOGLOBIN 31.9 pg (29.0-33.0); MEAN CORPUSCULAR HGB CONC 33.8 g/dl (32.0-37.0); MEAN CORPUSCULAR VOLUME 94.5 fl (82.0-101.0); MEAN PLATELET VOLUME 12.8 fl (7.4-10.4); MONOCYTE # 0.9 10^3/ul (0.3-0.9); MONOCYTES % 6.3 % (0.0-11.0); NEUTROPHIL # 10.2 10^3/ul (1.6-7.5); PLATELET COUNT 127 10^3/UL (140-415); RED BLOOD COUNT 3.82 10^6/ul (4.20-5.40); RED CELL DISTRIBUTION WIDTH 14.1 % (11.5-14.5); WHITE BLOOD COUNT 13.9 10^3/ul (4.8-10.8)
[2016-11-16 12:54] LABS: INR 0.94; PROTIME 12.6 Sec (12.2-14.2)
[2016-11-16 12:55] LABS: PARTIAL THROMBOPLASTIN TIME 22.4 Sec (25.0-35.0)
[2016-11-16] MEDS ORDERED: morphine SULFATE/PF (10 MG/10 ML) INJ ONE (14:02)
[2016-11-16] MEDS ORDERED: FENTAnyl 50 MCG/ML VIAL ONE (14:03)
[2016-11-16] MEDS ORDERED: PHENYLephrine (100 MCG/ML) 5ML SYG ONE (14:08)
[2016-11-16] MEDS ORDERED: DEXAMETHASONE 4 MG/ML 1 ML INJ ONE (14:36)
[2016-11-16] MEDS ORDERED: HYDROmorphONE 1 MG/ML SYG IV PRN ×2 (15:30)
[2016-11-16] MEDS ORDERED: NALOXONE (0.4 MG/ML) INJ IV PRN (15:30)
[2016-11-16] MEDS ORDERED: KETOROLAC 30 MG INJ IV PRN (15:30)
[2016-11-16] MEDS ORDERED: ZOLPIDEM 5 MG TAB PO PRN (15:30)
[2016-11-16] MEDS ORDERED: DIPHENHYDRAMINE 50 MG INJ IV PRN (15:30)
[2016-11-16] MEDS ORDERED: ONDANSETRON 4 MG INJ IV PRN (15:30)
[2016-11-16 18:40] VITALS: BP 128/93; PULSE 68; RESP 18
[2016-11-16] MEDS ORDERED: LANOLIN 7 GM TUBE TOP PRN (19:00)
[2016-11-16 19:23] VITALS: BP 121/92; PULSE 71; RESP 17
[2016-11-16 20:21] VITALS: BP 131/92; PULSE 68; RESP 18
[2016-11-16] MEDS: OXYTOCIN 30 UNITS/LR 500 ML IV SCH (20:27)
[2016-11-16 21:19] VITALS: BP 134/95; PULSE 66; RESP 16
[2016-11-16] MEDS: LABETALOL 200 MG TAB PO SCH (21:24)
[2016-11-16] MEDS: SENNA/DOCUSATE NA (8.6MG/50MG) TAB PO SCH (21:24)
[2016-11-16 22:21] VITALS: BP 133/93; PULSE 69; RESP 18
[2016-11-16 23:20] VITALS: BP 120/91; PULSE 72; RESP 18
[2016-11-17] VITALS (22 sets, daily range): BP systolic 120–166; BP diastolic 68–111; PULSE 60–74; RESP 16–64
[2016-11-17] MEDS: LACTATED RINGER'S 1,000 ML IV SCH ×3 (03:53→19:00)
[2016-11-17] MEDS: MAGNESIUM SULFATE 20 GM/500 ML 500 ML IV SCH ×2 (06:30→15:46)
[2016-11-17 07:38] LABS: ADD SCAN DIFF NO
[2016-11-17 07:43] LABS: BASOPHILS % 0.1 % (0.0-2.0); HEMATOCRIT 32.3 % (37.0-47.0); HEMOGLOBIN 10.4 g/dl (12.0-16.0); LYMPHOCYTES % 12.6 % (15.0-51.0); MEAN CORPUSCULAR HGB CONC 32.2 g/dl (32.0-37.0); MEAN CORPUSCULAR VOLUME 96.1 fl (82.0-101.0); MEAN PLATELET VOLUME 12.9 fl (7.4-10.4); MONOCYTE # 1.1 10^3/ul (0.3-0.9); MONOCYTES % 6.5 % (0.0-11.0); NEUTROPHIL # 12.9 10^3/ul (1.6-7.5); NEUTROPHILS % 80.1 % (39.0-77.0); NUCLEATED RED BLOOD CELLS% 0.1 /100WBC (0.0-0.0); PLATELET COUNT 121 10^3/UL (140-415); RED BLOOD COUNT 3.36 10^6/ul (4.20-5.40); RED CELL DISTRIBUTION WIDTH 14.3 % (11.5-14.5); WHITE BLOOD COUNT 16.2 10^3/ul (4.8-10.8)
[2016-11-17] MEDS: SENNA/DOCUSATE NA (8.6MG/50MG) TAB PO SCH ×2 (08:46→21:15)
[2016-11-17] MEDS: LABETALOL 200 MG TAB PO SCH ×3 (08:47→23:31)
[2016-11-17] MEDS: IBUPROFEN 800 MG TAB PO SCH ×2 (14:00→21:15)
[2016-11-17] MEDS: OXYTOCIN 30 UNITS/LR 500 ML IV SCH (15:47)
[2016-11-17] MEDS: OXYCODONE/ACETAMINOPHEN (5/325) TAB PO PRN ×2 (18:03→23:33)
--- NOTE | 2016-11-17 22:33 | QN ---
Documentation Comment No complaint Afebrile BP was elevated earlier, now improving Abdomen soft ND POD #1 Stable D/C magnesium sulfate Continue labetalol to control BP Ambulate Advance diet. EDMOND LUA MD Nov 17, 2016 22:33
[2016-11-18] VITALS (22 sets, daily range): BP systolic 128–170; BP diastolic 85–113; PULSE 68–90; RESP 16–20
[2016-11-18] MEDS: NIFEdipine (XL) 30 MG TAB PO SCH ×3 (05:28→18:25)
[2016-11-18] MEDS: IBUPROFEN 800 MG TAB PO SCH ×3 (05:29→21:55)
[2016-11-18] MEDS: LABETALOL 200 MG TAB PO SCH ×3 (08:02→23:33)
[2016-11-18 08:22] LABS: ADD SCAN DIFF NO
[2016-11-18 08:38] LABS: BASOPHILS % 0.2 % (0.0-2.0); EOSINOPHILS # 0.1 10^3/ul (0.0-0.5); EOSINOPHILS % 0.6 % (0.0-7.0); HEMOGLOBIN 9.4 g/dl (12.0-16.0); LYMPHOCYTES # 2.6 10^3/ul (0.8-2.9); LYMPHOCYTES % 24.2 % (15.0-51.0); MEAN CORPUSCULAR HEMOGLOBIN 30.9 pg (29.0-33.0); MEAN CORPUSCULAR HGB CONC 32.4 g/dl (32.0-37.0); MEAN CORPUSCULAR VOLUME 95.4 fl (82.0-101.0); MEAN PLATELET VOLUME 12.5 fl (7.4-10.4); MONOCYTE # 0.7 10^3/ul (0.3-0.9); MONOCYTES % 6.2 % (0.0-11.0); NEUTROPHIL # 7.4 10^3/ul (1.6-7.5); NEUTROPHILS % 67.9 % (39.0-77.0); PLATELET COUNT 105 10^3/UL (140-415); RED BLOOD COUNT 3.04 10^6/ul (4.20-5.40); RED CELL DISTRIBUTION WIDTH 14.5 % (11.5-14.5); WHITE BLOOD COUNT 10.9 10^3/ul (4.8-10.8)
[2016-11-18] MEDS: LACTATED RINGER'S 1,000 ML IV SCH ×3 (09:04→18:19)
[2016-11-18] MEDS: SENNA/DOCUSATE NA (8.6MG/50MG) TAB PO SCH ×2 (09:13→21:55)
[2016-11-18] MEDS: OXYCODONE/ACETAMINOPHEN (5/325) TAB PO PRN (09:49)
[2016-11-19] VITALS (16 sets, daily range): BP systolic 104–158; BP diastolic 80–109; PULSE 70–94; RESP 18–20
[2016-11-19] MEDS: OXYCODONE/ACETAMINOPHEN (5/325) TAB PO PRN ×2 (04:04→12:02)
[2016-11-19] MEDS: IBUPROFEN 800 MG TAB PO SCH ×3 (05:32→21:52)
[2016-11-19] MEDS: NIFEdipine (XL) 30 MG TAB PO SCH (05:36)
[2016-11-19] MEDS: LACTATED RINGER'S 1,000 ML IV SCH (07:00)
--- NOTE | 2016-11-19 07:30 | PN ---
Date/Time of Note Date/Time of Note DATE: 11/19/16 TIME: 07:24 OB Subjective Subjective Subjective Late Entry Note: patient seen and examined last night POD# 2 Patient seen and examined, she is doing well, denies nausea, vomiting, shortness of breath, chest pain, headache. Lochia is appropriate. She has been ambulating without difficulty and tolerating regular diet. Pain is well controlled on current medications. OB Objective Objective Objective General: AAO X 3, comfortable, NAD, appropriate mood and affect Heart: RRR +S1, +S2, no murmurs Lungs: Clear to auscultation (B/L), no rales, rhonchi or wheezing ABD: Soft, non-tender. UFH: 2 cm below umbilicus Incision: Clear, dry, intact. No erythema, drainage or induration Flank: No CVA tenderness (B/L) LE: Mod edema. No clubbing, cyanosis, thigh or calf tenderness (B/L) OB Assessment/Plan Other plan: POD# 2 S/P delivery. - Afebrile, vital sign stable. - Routine post- care. - Cont current managemment 2) CHTN with superimposed preeclampsia: Currently on labetalol and procardia. Continue current management. F/U by RAMIRO Jay Nov 19, 2016 07:30
[2016-11-19] MEDS: SENNA/DOCUSATE NA (8.6MG/50MG) TAB PO SCH ×2 (08:13→20:59)
[2016-11-19] MEDS: LABETALOL 200 MG TAB PO SCH ×3 (08:14→23:23)
[2016-11-19] MEDS ORDERED: DIPHTH/TET/ACEL PERTUSS (ADULT) 0.5 ML VIAL IM* ONE (09:00)
--- NOTE | 2016-11-19 14:50 | QN ---
Documentation Comment No complaint Afebrile BP still elevated Will increase medication to control BP. EDMOND LUA MD Nov 19, 2016 14:50
[2016-11-19] MEDS: NIFEdipine (XL) 60 MG TAB PO SCH (16:07)
[2016-11-20] VITALS (18 sets, daily range): BP systolic 111–155; BP diastolic 83–113; PULSE 79–97; RESP 18–20
[2016-11-20] MEDS: NIFEdipine (XL) 60 MG TAB PO SCH ×3 (04:01→21:22)
[2016-11-20] MEDS: IBUPROFEN 800 MG TAB PO SCH ×3 (05:42→21:22)
[2016-11-20] MEDS: SENNA/DOCUSATE NA (8.6MG/50MG) TAB PO SCH ×2 (08:20→21:22)
[2016-11-20] MEDS: LABETALOL 200 MG TAB PO SCH ×2 (08:21→16:08)
--- NOTE | 2016-11-20 15:11 | CONS ---
Date/Time of Note Date/Time of Note DATE: 11/20/16 TIME: 15:05 Assessment/Plan Assessment/Plan Chief Complaint/Hosp Course IMP: 1.HTN-ongoing post delivery. ? component of anxiety/agitation. Had pre-existing prior to teated with ACEI/HCTZ which could be used in as well 2.Post-op s/p c section delivery 3.Anemia 4.pre-eclampsia s/p c section delivery Recc: -Continue current procardia/Labetelol that have been started with further uptitration of labetelol as necessary -Will continue hydralazine for now as well but could likely be switched back to ACEI as outpatient as necessary but will hold on this at this time as ACEI can cross into breast milk and have some hemodynamic affects/consequences upon newborns -Will f/u 2 d echo -ok for d/c when BP remains stable in reasonable range. Will discuss with Dr Lua Problems: Consultation Date/Type/Reason Admit Date/Time Nov 13, 2016 at 18:35 Date of Consultation: Nov 20, 2016 Type of Consultation: Cardiology Reason for Consultation HTN Referring Provider: EDMOND LUA MD Hx of Present Illness 41 y/o female s/p c section delivery for pre-eclampsia, HTN with h/o HTN x 5 years treated with ACEI/HCTZ. Now since delivery 11/16/16 patient with ongoing uncontrolled HTN. Patient denies CP/SOB/palpitations/BERRY/dizziness. Review of Systems: CONSTITUTIONAL: No fevers, chills. PULMONARY: No sob CARDIOVASCULAR: No chest pain/palpitations GASTROINTESTINAL: No nausea/vomiting. GENITOURINARY: No hematuria/dysuria. MUSCULOSKELETAL: No myagias/arthalgias. PSYCHIATRIC: anxiety NEUROLOGIC: No weakness Past Medical History Medical History: hypertension Past Surgical History Past Surgical Hx: other (s/p c section delivery) Family History Significant Family History: no pertinent family hx Social History Alcohol Use: none Smoking Status: Never smoker Drug Use: none Exam/Review of Systems Vital Signs Vitals Vital Signs Date Time Temp Pulse Resp B/P Pulse Ox O2 Delivery O2 Flow Rate FiO2 11/20/16 14:30 91 18 145/104 Room Air 11/20/16 12:00 98.0 11/17/16 13:00 97 21 Exam Constitutional: alert, oriented Head: normocephalic ENMT: mucosa pink and moist Neck: jvd (9 cm water), supple Respiratory: diminished breath sounds (at bases/B) Cardiovascular: regular rate and rhythm Gastrointestinal: non-tender, soft Musculoskeletal: muscle tone (normal) Extremities: edema (BIlateral pitting) Neurological: other (No focal deficits) Results Result Diagram: 11/18/16 0800 Medications Medications Current Medications Oxycodone/ Acetaminophen (Percocet (5/ 325)) 1 tab Q4H PRN PO PAIN LEVEL 4-6 Last administered on 11/19/16 12:02; Admin Dose 1 TAB; Start 11/17/16 at 14:00 Oxycodone/ Acetaminophen (Percocet (5/ 325)) 2 tab Q4H PRN PO PAIN LEVEL 7-10 Last administered on 11/19/16 04:04; Admin Dose 2 TAB; Start 11/17/16 at 14:00 Ibuprofen (Motrin) 800 mg Q8 PO Last administered on 11/20/16 13:25; Admin Dose 800 MG; Start 11/17/16 at 14:00 Simethicone (Mylicon) 160 mg Q8H PRN PO DISTENSION/GAS/BLOATING; Start 11/16/16 at 19:00 Senna/Docusate Sodium 1 tab 1 tab BID PO Last administered on 11/20/16 08:20; Admin Dose 1 TAB; Start 11/16/16 at 21:00 Oxytocin/Lactated Ringer's 500 ml @ 0 mls/hr ONCE PRN IV For Hemorrhage Management; Start 11/16/16 at 19:00 Carboprost Tromethamine (Hemabate) 250 mcg ONCE PRN IM VAGINAL BLEEDING; Start 11/16/16 at 19:00 Misoprostol (Cytotec) 1,000 mcg ONCE PRN TN VAGINAL BLEEDING; Start 11/16/16 at 19:00 Labetalol HCl (Normodyne) 400 mg Q8H PO Last administered on 11/20/16 08:21; Admin Dose 400 MG; Start 11/17/16 at 16:00 Hydralazine HCl (Apresoline) 10 mg Q6 PO Last administered on 11/20/16 12:20; Admin Dose 10 MG; Start 11/19/16 at 12:00 Nifedipine (Procardia Xl) 60 mg BID PO Last administered on 11/20/16t 04:01; Admin Dose 60 MG; Start 11/19/16 at 15:26 ASTRID POLK Nov 20, 2016 15:11
[2016-11-20] MEDS: OXYCODONE/ACETAMINOPHEN (5/325) TAB PO PRN (16:06)
--- NOTE | 2016-11-20 16:25 | RADRPT ---
Echocardiogram Report Patient Name: DAHLIA HONG Gender: Female Date: 1975 Study Date: 19-Nov-2016 Bow Maker Machine Tender: [facility] Location: [id number] Ref. Physician: BERTRAND ALLRED Quality: Adequate Procedures: Transthoracic echocardiogram with complete 2D, M-Mode, and doppler examination. Indications: Elevated blood pressure. 2D/M Mode Doppler Measurement Value Normal Ranges Measurement Value Normal Ranges LVIDd 2D 4.0 3.5 - 5.6 cm AV Peak Giacomo 1.9 m/sec LVIDs 2D 2.5 2.1 - 4.1 cm AV Peak PG 14.0 mmHg FS 2D 36.3 % LVOT Peak Giacomo 1.2 m/sec LVPWd 2D 1.4 0.6 - 1.1 cm LVOT Peak PG 6.0 mmHg IVSd 2D 1.3 0.6 - 1.1 cm MV E Peak Giacoom 0.7 m/sec IVS/LVPW 2D 1.0 MV A Peak Giacomo 1.0 m/sec AoR Diam 2D 3.3 2.0 - 3.7 cm MV E/A 0.7 LA/Ao 2D 1 0 - 1 MV Decel Time 158 msec EDV 2D 64.0 cm3 MV E/A 0.7 ESV 2D 16.6 cm3 LA Dimen 2D 4.0 2.3 - 4.0 cm Findings Left Ventricle: Normal left ventricular systolic function. Normal left ventricular cavity size. Mild concentric left ventricular hypertrophy. Ejection fraction is visually estimated at 6065 %. Abnormal Diastolic Function. Right Ventricle: Normal right ventricular size. Normal right ventricular systolic function. Left Atrium: The left atrium is normal in size. Right Atrium: The right atrium is normal in size. Mitral Valve: Mitral valve leaflets appear mildly thickened. Mild mitral annular calcification. Trace mitral regurgitation. Aortic Valve: No significant aortic stenosis or insufficiency. Aortic valve not well visualized. Tricuspid Valve: Normal appearance and function of the tricuspid valve with trace physiologic regurgitation. Pulmonic Valve: Pulmonic valve not well visualized. There is trace pulmonic regurgitation. Pericardium: Normal pericardium with no significant pericardial effusion. Aorta: Normal aortic root. IVC: Normal size and normal respiratory collapse consistent with normal right atrial pressure. Conclusions Normal left ventricular systolic function. Normal left ventricular cavity size. Mild concentric left ventricular hypertrophy. Ejection fraction is visually estimated at 60-65 %. Abnormal Diastolic Function. Mitral valve leaflets appear mildly thickened. Mild mitral annular calcification. Trace mitral regurgitation. Normal appearance and function of the tricuspid valve with trace physiologic regurgitation. Pulmonic valve not well visualized. There is trace pulmonic regurgitation. Electronically Signed By: Izaiah Rodarte 20-Nov-2016 16:24:02 -0700 Patient Name: DAHLIA HONG Study Date: 19-Nov-2016 [id number]
[2016-11-20] MEDS ORDERED: hydrOXYzine HCL 25 MG TAB PO PRN (19:30)
--- NOTE | 2016-11-20 21:38 | QN ---
Documentation Comment Cardiology consult noted and appreciated. Patient's BP was very high earlier and patient's medications were increased to control her BP. Will continue to monitor BP closely and once BP controlled will d/c home. EDMOND LUA MD Nov 20, 2016 21:38
[2016-11-21] VITALS (12 sets, daily range): BP systolic 104–141; BP diastolic 83–106; PULSE 81–97; RESP 18–20
[2016-11-21] MEDS: IBUPROFEN 800 MG TAB PO SCH ×2 (05:38→14:43)
[2016-11-21] MEDS: SENNA/DOCUSATE NA (8.6MG/50MG) TAB PO SCH (08:43)
[2016-11-21] MEDS: NIFEdipine (XL) 60 MG TAB PO SCH (08:43)
[2016-11-21] MEDS: LABETALOL 200 MG TAB PO SCH ×3 (08:43→16:15)
[2016-11-21] MEDS: OXYCODONE/ACETAMINOPHEN (5/325) TAB PO PRN ×2 (11:30→16:50)
--- NOTE | 2016-11-21 13:04 | PREOPHP ---
PREOP HISTORY AND PHYSICAL DATE OF ADMISSION: 11/13/2016 HISTORY OF PRESENT ILLNESS: A 41-year-old female, 2, para 1, estimated date of delivery 01/31/2017, was admitted due to increasing blood pressure. The patient with history of chronic hypertension and had been on labetalol, however, the patient's blood pressure was noted to be increasing to 154/106 in the clinic. PAST MEDICAL HISTORY: Chronic hypertension. ALLERGIES: PENICILLIN. FAMILY HISTORY: Hypertension. PAST SURGICAL HISTORY: Unremarkable. PHYSICAL EXAMINATION: VITAL SIGNS: Vital signs are stable. HEENT: Head within normal limits. NECK: Within normal limits. ABDOMEN: Soft, nontender, and gravid. NEUROLOGIC: Normal. HOSPITAL COURSE: The patient was admitted due to increase in blood pressure. Perinatologist consultation was obtained. The patient initially was given intravenous magnesium sulfate for seizure prophylaxis and patient was given intravenous antihypertensive. The patient's blood pressure improved and patient was placed on increased dose of labetalol. Recommendation of pernatologist was to discontinue magnesium sulfate and to monitor the patient in the hospital. On 11/15/2016, patient's blood pressure was noted to be increasing more. The patient was also given intravenous labetalol, however, the patient's blood pressure would not decrease. On 11/16/2016, patient complained of headache. The patient's systolic blood pressure was noted to have increased to the 180s. The patient was started on intravenous magnesium sulfate for seizure prophylaxis. The patient was also given intravenous hydralazine to lower her blood pressure. Despite being on intravenous magnesium sulfate and receiving intravenous hydralazine and labetalol, the patient's blood pressure still remains in the 160s. Recommendations of perinatologist is to go on and deliver the patient. The patient is for delivery by primary section. Risks, benefits, and alternatives of said procedure were explained to patient. The patient said she understood and gave full consent for the procedure. Dictated By: Trey Fuentes MD /araceli/minerva /Document#: [id number] Conf#:[id number] DID#: [id number] MTDD
--- NOTE | 2016-11-21 13:07 | CONS ---
CONSULTATION DATE OF ADMISSION: 11/13/2016 DATE OF CONSULTATION: REASON FOR CONSULTATION: patient's blood pressures have continued to be in a very severe range despite IV labetalol, hydralazine IV and hydralazine p.o., and she has been experiencing headache essentially since increase of the blood pressure last night. Given these findings, delivery is recommended as soon as possible and please consider magnesium sulfate after delivery. Continue monitoring strict ins and outs. Dictated By: Margo Lamb MD /araceli/ec /Document#: [id number]
--- NOTE | 2016-11-21 16:31 | RADRPT ---
Vent Rate: 76 bpm RR Interval: 0 msec SC Interval: 138 msec QRS Duration: 78 msec QT Interval: 364 msec QTC Interval: 409 msec P-R-T [place]: 58 - 67 - 25 degrees Normal sinus rhythm Normal ECG Electronically Signed By: Axel Cleary [id number]
[2016-11-21] MEDS ORDERED: IBUP800T25 PO (18:53)
--- NOTE | 2016-11-24 08:31 | OPR ---
DATE OF OPERATION: 11/16/2016 PREOPERATIVE DIAGNOSIS: at 29 weeks, chronic hypertension, superimposed preeclampsia. POSTOPERATIVE DIAGNOSIS: at 29 weeks, chronic hypertension, superimposed preeclampsia. OPERATION PERFORMED: Primary section through an inverted T incision. SURGEON: Trey Fuentes MD KNITTER WIRE MESH: Donna Mendiola MD ANESTHESIA: Spinal. ANESTHESIOLOGIST: Dr. Cantu OPERATIVE PROCEDURE: The patient was taken to the operating room and placed on the operating table. After successful spinal anesthesia was given, the patient was placed in the . The area was prepped and draped in the usual sterile fashion. Spinal anesthesia was and was satisfactory. Using scalpel, a Pfannenstiel incision was made about 2 fingerbreadths above the symphysis pubis. The incision was carried to the fascia. The fascia was incised and extended bilaterally with Weir scissors. Two Joycelyn's were used to separate the fascia from the muscle. The muscle was dissected down to peritoneum. The peritoneum was bluntly entered. Using a scalpel, a small transverse incision was made in the lower segment of the uterus. Upon entering the uterine cavity, Pfannenstiel was incision bilaterally. It was noted that the baby was in transverse lie position, therefore the incision was extended to an inverted T incision. The baby was delivered from cephalic presentation after internal version from transverse lie. After suctioned clear of amniotic fluid, the baby was handed off to the kids activities coach in attendance. Apgars were 8 and 9. The placenta was delivered without difficulty. The uterus was closed with number 1 Monocryl continuous lock after assuring hemostasis. Both ovaries and tubes were normal. The peritoneal cavity was irrigated with warm saline. The peritoneum was closed with 2-0 Vicryl continuous. The fascia was closed with number 1 Vicryl continuous in 2 segments. The subcutaneous tissue was reapproximated with 2-0 plain. The skin was closed with jesús. Estimated blood loss 600 cc. Complications none. All counts were correct. Dictated By: Trey Fuentes MD /araceli/minerva /Document#: [id number]
== END 2016-11-21 19:06 | disposition home or self-care (01) | DRG 766 ==
LOC: OBT 17:50 → L-D 17:51 → OBT 20:32 → L-D 21:45 → OBG 11-15 14:17 → L-D 11-16 11:35 → PP1 11-16 18:24
PROVIDERS: ADMIT Obstetrics & Gynecology; ATTEND Obstetrics & Gynecology
PROC: 10D00Z1 Extraction of Products of Conception, Low, Open Approach (ICD-10-PCS; principal; 2016-11-16 14:00)
DX: O11.4 Pre-existing hypertension with pre-eclampsia, complicating childbirth (principal); O99.02 Anemia complicating childbirth; O10.02 Pre-existing essential hypertension complicating childbirth; Z37.0 Single live birth; Z3A.29 29 weeks gestation of pregnancy
CPT/HCPCS: 36415; 76816; 76818; 80053; 81001; 82575; 83735; 84156; 84560; 85025; 85384; 85610; 85730; 86592; 86850; 86900; 86901; 86920; 87086; 87340; 90715; 93005; 93306; 94760; 96360; 96366; 99464; G0463; J0360; J0690; J0702; J1100; J1170; J1885; J2274; J2370; J2405; J2590; J3010; J3475; J7120